=== PATIENT | female | born 1935 | race Caucasian/White ===

== ENCOUNTER → 2017-03-25 | Outpatient (CLI) | payer MEDICARE, OTHER | END | disposition home or self-care (01) | LOC: GMAH 10:35 | PROVIDERS: ATTEND Family Medicine | DX: E03.9 Hypothyroidism, unspecified (principal) ==

== ENCOUNTER → 2017-04-20 | Outpatient (CLI) | payer MEDICARE, OTHER | END | disposition home or self-care (01) | LOC: GMA 18:55 | PROVIDERS: ATTEND Nurse Practitioner Acute Care | DX: N39.0 Urinary tract infection, site not specified (principal) ==

== ENCOUNTER → 2017-04-27 | Outpatient (CLI) | payer MEDICARE, OTHER | END | disposition home or self-care (01) | LOC: GMA 19:28 | PROVIDERS: ATTEND Nurse Practitioner Acute Care | DX: N39.0 Urinary tract infection, site not specified (principal) ==

== ENCOUNTER → 2017-08-31 | Outpatient (CLI) | payer MEDICARE, OTHER | END | disposition home or self-care (01) | LOC: MAMMO 13:04 | PROVIDERS: ATTEND Family Medicine | DX: Z12.31 Encounter for screening mammogram for malignant neoplasm of breast (principal) | CPT/HCPCS: 77063; G0202 ==

== ENCOUNTER → 2018-01-04 | Outpatient (CLI) | payer MEDICARE, OTHER | LOC: GMAH 15:47 | PROVIDERS: ATTEND Family Medicine | DX: N39.0 Urinary tract infection, site not specified (principal) ==

== ENCOUNTER → 2018-01-19 | Outpatient (CLI) | payer MEDICARE, OTHER | LOC: LAB.O 08:52 | PROVIDERS: ATTEND Family Medicine | DX: M06.9 Rheumatoid arthritis, unspecified (principal); M79.7 Fibromyalgia ==

== ENCOUNTER → 2018-04-21 | Outpatient (CLI) | payer MEDICARE, OTHER | LOC: GMAH 11:19 | PROVIDERS: ATTEND Family Medicine | DX: I10 Essential (primary) hypertension (principal); R60.9 Edema, unspecified; R06.02 Shortness of breath ==

== ENCOUNTER → 2018-09-03 | Outpatient (CLI) | payer MEDICARE, OTHER ==
--- NOTE | 2018-09-06 16:31 | MAM ---
EXAM DESCRIPTION: 3D Screening BILATERAL : Digital Mammography. CLINICAL HISTORY: 83 years Female SCREENING . No complaints or personal history of breast cancer. Remote family history of breast cancer. Childbirth. Postmenopausal x44 years. No HRT. Prior cyst aspiration left breast. Lifetime risk of developing breast cancer (Tyrer-Cuzick model)(%): 1.7. COMPARISON: Bilateral screening digital breast tomosynthesis 08/31/2017.. TECHNIQUE: Bilateral CC and MLO projection full-field images, Digital tomosynthesis mammographic technique. Bilateral digital 2-D full-field MLO images. CAD not utilized. FINDINGS: The breast parenchymal density pattern is: Scattered areas of fibroglandular density. No skin thickening or nipple retraction. Bilateral small axillary lymph nodes. Coarse calcifications in the left breast. Bilateral solitary microcalcifications. Fibroglandular tissues predominantly in the anterior third, partially nodular, and symmetric. No new focal, stellate mass or density, focal asymmetry , and no suspicious microcalcifications bilaterally. Stable mammograms compared to prior study. IMPRESSION: Benign exam. BIRAD CATEGORY: 2 BENIGN FINDINGS. RECOMMENDATIONS: FOLLOW UP: Routine digital bilateral screening, one year interval from August 2018. Written communication explaining the IMPRESSION and follow-up, will be mailed to the patient and referring health care provider. According to the [employer], yearly mammograms are recommended starting at age 40 and continuing as long as a woman is in good health. Any breast change noted on a breast self-exam should be reported promptly to the patient's healthcare provider. Breast MRI is recommended for women with an approximately 20-25% or greater lifetime risk of breast cancer, including women with a strong family history of breast or ovarian cancer and women who have been treated for Hodgkin's disease. A negative mammographic report should not delay tissue diagnosis in patients with significant clinical history or physical findings. Extremely dense breast tissue limits the sensitivity of digital mammography. Electronically signed by: Marshal Oconnor MD 09/06/2018 4:30 PM CDT
== END ==
LOC: MAMMO 12:30
PROVIDERS: ATTEND Family Medicine
DX: Z12.31 Encounter for screening mammogram for malignant neoplasm of breast (principal)

== ENCOUNTER → 2018-11-10 | Outpatient (CLI) | payer MEDICARE, OTHER | LOC: GMAH 16:39 | PROVIDERS: ATTEND Family Medicine | DX: M25.50 Pain in unspecified joint (principal) ==

== ENCOUNTER → 2019-06-10 | Outpatient (CLI) | payer MEDICARE, OTHER ==
--- NOTE | 2019-06-10 12:42 | RAD ---
EXAM DESCRIPTION: Pelvis CLINICAL HISTORY: 83 years Female, M25.562/M25.552 COMPARISON: None. TECHNIQUE: AP radiograph of the pelvis was performed. FINDINGS: The pelvic ring appears grossly intact on this single AP radiograph. No gross fracture identified.. Moderate bilateral hip joint osteoarthritic changes are seen. Mild bilateral SI joint degenerative changes. The visualized lumbo-sacral spine demonstrates moderate degenerative changes. IMPRESSION: 1. Single AP radiograph of the pelvis demonstrates grossly intact pelvic ring. 2. Moderate bilateral hip joint and lumbar spine degenerative changes. Electronically signed by: Kavin Parisi MD 06/10/2019 12:40 PM CDT
--- NOTE | 2019-06-10 12:44 | RAD ---
EXAM DESCRIPTION: Knee,Left Complete CLINICAL HISTORY: 83 years Female, M25.562/M25.552 TECHNIQUE: 4 views of the left knee were performed. COMPARISON: None available. FINDINGS: Mild diffuse osteopenia of the visualized bones noted. No acute fracture or dislocation. Mild to moderate tricompartmental osteoarthritic changes. The medial and lateral compartment joint space are well-maintained. Small suprapatellar joint effusion. Slight lateral subluxation of the patella. The overlying soft tissues appear grossly unremarkable. IMPRESSION: 1. No acute fracture or dislocation. 2. Mild to moderate tricompartmental osteoarthritic changes. Electronically signed by: Kavin Parsii MD 06/10/2019 12:42 PM CDT
--- NOTE | 2019-06-10 12:47 | RAD ---
EXAM DESCRIPTION: Knee,Right Complete CLINICAL HISTORY: 83 years Female, M25.562/M25.552 TECHNIQUE: 4 views of the right knee were performed. COMPARISON: July 11, 2014. FINDINGS: Mild diffuse osteopenia of the visualized bones. No acute fracture or dislocation. Moderate to severe tricompartmental osteoarthritic changes. Severe medial compartment joint space narrowing is noted. Moderate suprapatellar joint effusion. The soft tissues appear grossly unremarkable. IMPRESSION: 1. No acute fracture or dislocation. 2. 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 Moderate suprapatellar joint effusion. Note: The osteoarthritic changes are worse in the right knee compared to the left knee. Electronically signed by: Kavin Parisi MD 06/10/2019 12:45 PM CDT
== END ==
LOC: RAD 08:03
PROVIDERS: ATTEND Orthopaedic Surgery
DX: M17.11 Unilateral primary osteoarthritis, right knee (principal); M17.12 Unilateral primary osteoarthritis, left knee; M16.0 Bilateral primary osteoarthritis of hip; M47.896 Other spondylosis, lumbar region

== ENCOUNTER 2019-06-12 07:58 | Emergency (ER) | payer MEDICARE, OTHER ==
--- NOTE | 2019-06-12 08:20 | ED.PDOC ---
History of Present Illness - General Chief Complaint: General Stated Complaint: fever Time Seen by Provider: 06/12/19 08:19 Source: patient Exam Limitations: no limitations - History of Present Illness Initial Comments: Carmencita Lora 83 y/o female came to ER with not feeling well last night then woke up early this Am unable to sleep with fever and body aches.No N/V/D,denies ill contact no dysuria,no chest pains or cough.Has history of Rheumatoid Arthritis on Humira and MTX.Her initial VS at ER BP-139/63;Sa02-94 %p;HR-77T-101.5 F. Timing/Duration: 4-6 hours Severity: moderate Improving Factors: nothing Worsening Factors: nothing Associated Symptoms: other - see hpi Allergies/Adverse Reactions: Allergies NO KNOWN ALLERGY Allergy (Verified 06/12/19 08:24) Home Medications: Ambulatory Orders Diazepam 5 mg PO BEDTIME 09/21/13 Levothyroxine Sodium 175 mcg PO DAILY 09/21/13 Pentoxifylline [Pentoxifylline ER] 400 mg PO BID 07/11/14 Adalimumab [Humira] 10 mg SC BIW 06/12/19 DULoxetine HCL [Cymbalta] 30 mg PO BID 06/12/19 Folic Acid 1 mg PO DAILY 06/12/19 Furosemide [Lasix] 20 mg PO DAILY PRN 06/12/19 Gabapentin 100 mg PO BID 06/12/19 Methotrexate Sodium [Methotrexate] 8 tablet PO WKLY 06/12/19 Metoprolol Succinate [Metoprolol Succinate ER] 25 mg PO DAILY 06/12/19 tiZANidine [Zanaflex] 4 mg PO BEDTIME 06/12/19 Review of Systems - Review of Systems Constitutional: States: fever, weakness EENTM: States: no symptoms reported Respiratory: States: no symptoms reported Cardiology: States: no symptoms reported Gastrointestinal/Abdominal: States: no symptoms reported Genitourinary: States: no symptoms reported Musculoskeletal: States: no symptoms reported Neurological: States: no symptoms reported All other Systems: Reviewed and Negative, No Change from Baseline Past Medical History (General) - Patient Medical History Hx Seizures: No Hx Stroke: No Hx Dementia: No Hx Asthma: No Hx of COPD: No Hx Cardiac Disorders: No Hx Congestive Heart Failure: No Hx Pacemaker: No Hx Hypertension: No Hx Thyroid Disease: No Hx Diabetes: No Hx Gastroesophageal Reflux: No Hx Renal Disease: No Hx Cancer: No Hx of HIV: No Hx Hepatitis C: No Hx MRSA: No Hx Other PMH: Yes - Rhematoid Arthritis Surgical History: other - Hystyerectomy - Vaccination History Hx Tetanus, Diphtheria Vaccination: Yes Hx Influenza Vaccination: Yes Hx Pneumococcal Vaccination: Yes - Social History Hx Tobacco Use: No Hx Chewing Tobacco Use: No Hx Alcohol Use: No Hx Substance Use: No Hx Substance Use Treatment: No Hx Depression: No Hx Physical Abuse: No Hx Emotional Abuse: No Hx Suspected Abuse: No - Activities of Daily Living Patient Lives Alone: Yes Grooming Ability: Independent Eating (Feeding) Ability: Independent Toileting Ability: Independent - Female History Patient : No Family Medical History - Family History Mother Age (years): 87 Living Status: Hx Cardiac Disease: Yes Hx Family;Other: Alzheimers Father Age (years): 87 Living Status: Hx Family;Other: kidney Physical Exam - Physical Exam General Appearance: Alert, Comfortable, No apparent distress Eye Exam: bilateral normal Ears, Nose, Throat: hearing grossly normal, normal ENT inspection, normal pharynx Neck: supple, normal inspection Respiratory: chest non-tender, lungs clear, normal breath sounds, no respiratory distress Cardiovascular/Chest: normal peripheral pulses, no murmur, irregularly irregular - HR-102 Peripheral Pulses: radial,right: 2+, radial,left: 2+ Gastrointestinal/Abdominal: normal bowel sounds, non tender, soft, no organomegaly Back Exam: no CVA tenderness, no vertebral tenderness Extremity: no pedal edema, no calf tenderness Neurologic: alert, oriented x 3 Skin Exam: normal color, warm/dry Lymphatic: no adenopathy Progress - Progress Progress: 06/12/19 09:05 Vital Signs - 24 hr 06/12/19 08:20 Temperature 101.5 F H Pulse Rate [ 110 H MONITOR] Respiratory 18 Rate Blood Pressure 139/63 [RA] O2 Sat by Pulse 92 L Oximetry - Results/Orders Results/Orders: 06/12/19 08:00 Urine Culture Stat 06/12/19 08:20 IV Care:Saline Lock per Protoc QSHIFT 06/12/19 08:45 EKG STAT 06/12/19 08:46 BLOOD CULTURE Stat 06/12/19 10:00 EKG STAT 06/12/19 10:23 Sodium Chloride 0.9% 1000ML [Ns 1000 ml] 1,000 ml IVS .QD Laboratory Results - last 24 hr 06/12/19 06/12/19 06/12/19 08:00 08:00 08:28 WBC 12.2 H RBC 4.42 Hgb 14.1 Hct 40.7 MCV 92.0 MCH 31.8 H MCHC 34.6 RDW 15.1 H Plt Count 214 MPV 7.1 L Absolute Neuts (auto) 11.00 H Absolute Lymphs (auto) 0.40 L Absolute Monos (auto) 0.80 Absolute Eos (auto) 0.00 Absolute Basos (auto) 0.00 Neutrophils % 90.1 H Lymphocytes % 3.4 L Monocytes % 6.3 Eosinophils % 0.1 L Basophils % 0.1 PT 9.9 INR 0.99 PTT (SP) 24.0 Sodium 140 Potassium 3.3 L Chloride 103 Carbon Dioxide 23 Anion Gap 17.3 BUN 33 H Creatinine 0.71 BUN/Creatinine Ratio 46.5 H Random Glucose 81 Serum Osmolality Not Reportable Lactic Acid 2.5 H* Calcium 9.5 Magnesium 2.0 Total Bilirubin 0.5 Direct Bilirubin 0.1 Indirect Bilirubin 0.4 AST 32 ALT 20 Alkaline Phosphatase 110 Creatine Kinase 76 CK-MB (CK-2) 4.4 CK-MB (CK-2) % 5.79 H Troponin I 0.06 H Serum Total Protein 7.1 Albumin 4.1 Urine Color Yellow Urine Appearance Clear Urine pH 6.0 Ur Specific [place] 1.015 Urine Protein 30 Urine Glucose (UA) Negative Urine Ketones Negative Urine Blood Large H Urine Nitrite Positive H Urine Bilirubin Negative Urine Urobilinogen 0.2 Ur Leukocyte Esterase Small H Urine RBC 3-5 H Urine WBC 30-40 H Ur Epithelial Cells 3-5 Urine Bacteria 2+ H 06/12/19 06/12/19 10:28 10:28 WBC RBC Hgb Hct MCV MCH MCHC RDW Plt Count MPV Absolute Neuts (auto) Absolute Lymphs (auto) Absolute Monos (auto) Absolute Eos (auto) Absolute Basos (auto) Neutrophils % Lymphocytes % Monocytes % Eosinophils % Basophils % PT INR PTT (SP) Sodium Potassium Chloride Carbon Dioxide Anion Gap BUN Creatinine BUN/Creatinine Ratio Random Glucose Serum Osmolality Lactic Acid 2.9 H* Calcium Magnesium Total Bilirubin Direct Bilirubin Indirect Bilirubin AST ALT Alkaline Phosphatase Creatine Kinase CK-MB (CK-2) CK-MB (CK-2) % Troponin I 0.08 H* Serum Total Protein Albumin Urine Color Urine Appearance Urine pH Ur Specific [place] Urine Protein Urine Glucose (UA) Urine Ketones Urine Blood Urine Nitrite Urine Bilirubin Urine Urobilinogen Ur Leukocyte Esterase Urine RBC Urine WBC Ur Epithelial Cells Urine Bacteria Discuss test result with patient that she needs to stay in hospital agreed with plan - EKG/XRAY/CT EKG: Sinus, Tachy Comments: HR-97;PVC's ;sinus arrhythmia;PAC XRAY: chest - no acute abnormalities - Additional EKG/XRAY/Consults EKG #2: Atrial, Fibrillation Comments: HR-154 Departure - Departure Clinical Impression: New onset atrial fibrillation, Elevated troponin, Lactic acid blood increased Fever Qualifiers: Fever type: due to other condition Qualified Code(s): R50.81 - Fever presenting with conditions classified elsewhere Urinary tract infection Qualifiers: Urinary tract infection type: site unspecified Hematuria presence: with hematuria Qualified Code(s): N39.0 - Urinary tract infection, site not specified Time of Disposition: 11:38 Disposition: Transfer to Hospital Condition: Fair Departure Forms: Patient Portal Self Enrollment Referrals: Sanford Stokes MD [Primary Care Provider] - 1-2 Weeks Home Medications: Ambulatory Orders Diazepam 5 mg PO BEDTIME 09/21/13 Levothyroxine Sodium 175 mcg PO DAILY 09/21/13 Pentoxifylline [Pentoxifylline ER] 400 mg PO BID 07/11/14 Adalimumab [Humira] 10 mg SC BIW 06/12/19 DULoxetine HCL [Cymbalta] 30 mg PO BID 06/12/19 Folic Acid 1 mg PO DAILY 06/12/19 Furosemide [Lasix] 20 mg PO DAILY PRN 06/12/19 Gabapentin 100 mg PO BID 06/12/19 Methotrexate Sodium [Methotrexate] 8 tablet PO WKLY 06/12/19 Metoprolol Succinate [Metoprolol Succinate ER] 25 mg PO DAILY 06/12/19 tiZANidine [Zanaflex] 4 mg PO BEDTIME 06/12/19 Transfer to Outside Facility - Transfer Information Accepting Provider:: Dr. Parker Accepting Facility: [facility] Reason for Transfer: required specialist not available - almond paste mixer
[2019-06-12] MEDS: SODIUM CHLORIDE 0.9% 500ML 500 ML IVS ONE ×2 (08:48→09:28)
[2019-06-12] MEDS ORDERED: ACETAMINOPHEN 500 MG TAB PO ONE (08:56)
[2019-06-12] MEDS ORDERED: ASPIRIN (CHEWABLE) 81 MG TAB PO ONE (09:11)
--- NOTE | 2019-06-12 09:35 | RAD ---
EXAM DESCRIPTION: Chest,1 View CLINICAL HISTORY: 83 years Female fever COMPARISON: None TECHNIQUE: Portable AP view of the chest is obtained. FINDINGS IN THE CHEST: Heart: Allowing for magnification factors related to AP portable technique and body habitus, the heart is upper limits of normal in size and configuration. Vasculature: [] Micrograms aorta There is no evidence of aortic aneurysm or acute findings. The pulmonary vascularity is normal. Mediastinum: Unremarkable otherwise. No evidence of mass or adenopathy. Lungs: There is no focal consolidation in the lungs. Pleura: There are no pleural effusions. There are no pneumothoraces. Osseous structures: No evidence of acute fracture or other significant osseous abnormalities. There are multiple costochondral calcifications. Tubes and catheters: None Chest wall: Unremarkable. Visualized Abdomen: Unremarkable. IMPRESSION: No acute findings in the chest. Remainder of findings as described above. Electronically signed by: Deanna Miles MD 06/12/2019 9:34 AM CDT
[2019-06-12] MEDS ORDERED: MEROPENEM 1 GM in SODIUM CHL 0.9% 50ML MIN-BAG+ 50 ML IVPB ONE (09:38)
[2019-06-12] MEDS ORDERED: MEROPENEM 1 GM VIAL IVPB ONE (09:41)
[2019-06-12] MEDS ORDERED: SODIUM CHL 0.9% 50ML MIN-BAG+ 50 ML IVPB ONE (09:41)
[2019-06-12] MEDS ORDERED: SODIUM CHLORIDE 0.9% 1000ML 1,000 ML IVS PRN (10:23)
[2019-06-12 11:45] VITALS: BP 98/67; O2SAT 96
[2019-06-12 13:05] VITALS: TEMP 99.1
== END 2019-06-12 12:20 | disposition short-term general hospital (02) ==
LOC: ER 07:58
DX: N39.0 Urinary tract infection, site not specified (principal); I48.91 Unspecified atrial fibrillation; R79.89 Other specified abnormal findings of blood chemistry; R74.0 Nonspecific elevation of levels of transaminase and lactic acid dehydrogenase [LDH]; I49.3 Ventricular premature depolarization; I49.1 Atrial premature depolarization; R00.0 Tachycardia, unspecified; M06.9 Rheumatoid arthritis, unspecified; Z79.899 Other long term (current) drug therapy
CPT/HCPCS: 36415; 71045; 80048; 80076; 81001; 82550; 82553; 83605; 84484; 85025; 85610; 85730; 87040; 87077; 87086; 87186; 93005; J2185; J7030; J7040; J7050

== ENCOUNTER → 2019-08-02 | Outpatient (CLI) | payer MEDICARE, OTHER | LOC: GMA MATASK 11:42 | PROVIDERS: ATTEND Family Medicine | DX: I10 Essential (primary) hypertension (principal) ==

== ENCOUNTER → 2019-09-29 | Outpatient (CLI) | payer MEDICARE, OTHER | LOC: GMA MATASK 14:41 | PROVIDERS: ATTEND Family Medicine | DX: E03.9 Hypothyroidism, unspecified (principal) ==

== ENCOUNTER → 2020-05-29 | Outpatient (CLI) | payer MEDICARE, OTHER | LOC: GMA MATASK 14:48 | PROVIDERS: ATTEND Family Medicine | DX: E03.9 Hypothyroidism, unspecified (principal); E78.2 Mixed hyperlipidemia; I10 Essential (primary) hypertension ==

== ENCOUNTER → 2020-06-20 | Outpatient (CLI) | payer MEDICARE, OTHER ==
--- NOTE | 2020-06-21 08:51 | US ---
EXAM DESCRIPTION: Venous,Upper Extremity RT: ULTRASOUND. CLINICAL HISTORY: generalized edema COMPARISON: None Available. TECHNIQUE: Two -dimensional and doppler sonographic evaluation of the deep venous system of the right upper extremity. FINDINGS: Doppler evaluation shows normal color flow and normal phasicity and augmentation of the right subclavian, jugular, axillary, basilic, cephalic, brachial, radial vein and ulnar vein. The right upper extremity deep veins showed normal occlusion with transducer pressure. Two-dimensional survey showed no echogenic thrombus within these veins. IMPRESSION: Duplex ultrasound evaluation of the right upper extremity deep venous system showing no evidence of thrombosis . Electronically signed by: Marshal Oconnor MD 06/21/2020 8:49 AM CDT
--- NOTE | 2020-06-21 08:53 | US ---
EXAM DESCRIPTION: Soft Tissue,Extremity: ULTRASOUND. CLINICAL HISTORY: 84 years Female generalized edema COMPARISON: None Available. TECHNIQUE: Transcutaneous scanning: [place]-scale and Doppler modes. FINDINGS: Right axilla. Mostly fatty tissues. Hypoechoic circumscribed lymph node with eccentric hilum measuring 6.0 x 5.0 x 2.9 mm. Not vascular. No dominant solid mass, no distinct cyst, no fluid collection, and no large calcifications. Normal musculotendinous structures and vascular structures are also seen. IMPRESSION: Small lymph node with normal morphology is visualized in the right axilla. No dominant solid mass or abnormal reactive lymph node seen. Electronically signed by: Marshal Oconnor MD 06/21/2020 8:52 AM CDT
== END ==
LOC: US 12:50
PROVIDERS: ATTEND Family Medicine
DX: R60.1 Generalized edema (principal); M25.551 Pain in right hip

== ENCOUNTER → 2020-08-22 | Outpatient (CLI) | payer MEDICARE, OTHER | LOC: LAB.O 14:24 | PROVIDERS: ATTEND Family Medicine | DX: D64.9 Anemia, unspecified (principal) ==

== ENCOUNTER 2020-09-23 13:18 | Emergency (ER) | payer MEDICARE, OTHER ==
[2020-09-23] MEDS ORDERED: HYDROcodone 5MG/APAP 325MG 1 EA TAB PO ONE (13:40)
--- NOTE | 2020-09-23 13:43 | ED.PDOC ---
History of Present Illness - General Chief Complaint: Lower Extremity Injury Stated Complaint: bilateral hip and knee pain Time Seen by Provider: 09/23/20 13:33 Source: patient, RN notes reviewed, Vital Signs reviewed Exam Limitations: no limitations - History of Present Illness Initial Comments: Patient reports history of rheumatoid arthritis and her doctor took her off her usual pain medications about 3 weeks ago. States she fell at home 10 days ago and hurt her right hip. She was seen by her PCP with x-rays of the right hip that were negative. States 3 days ago she was walking with her walker in the house and fell forward onto bilateral flexed knees. She denies hitting her head, loss of consciousness, neck pain or back pain. States she has had right h ip and bilateral knee pain for the past few days whenever she is weightbearing. She has no pain at night or whenever she is lying down. Her doctor put her on an anti-inflammatory pain medication last week, but it is not controlling her pain. Allergies/Adverse Reactions: Allergies NO KNOWN ALLERGY Allergy (Verified 01/11/20 21:01) Home Medications: Ambulatory Orders Diazepam 5 mg PO BEDTIME 09/21/13 Levothyroxine Sodium 175 mcg PO DAILY 09/21/13 Pentoxifylline [Pentoxifylline ER] 400 mg PO BID 07/11/14 Adalimumab [Humira] 10 mg SC BIW 06/12/19 DULoxetine HCL [Cymbalta] 30 mg PO BID 06/12/19 Folic Acid 1 mg PO DAILY 06/12/19 Furosemide [Lasix] 20 mg PO DAILY PRN 06/12/19 Gabapentin 100 mg PO BID 06/12/19 Methotrexate Sodium [Methotrexate] 8 tablet PO WKLY 06/12/19 Metoprolol Succinate [Metoprolol Succinate ER] 25 mg PO DAILY 06/12/19 tiZANidine [Zanaflex] 4 mg PO BEDTIME 06/12/19 Review of Systems - Review of Systems Constitutional: Denies: chills, fever Respiratory: Denies: cough, short of breath Cardiology: Denies: chest pain, edema, palpitations, syncope Gastrointestinal/Abdominal: Denies: abdominal pain, diarrhea, nausea Musculoskeletal: States: see HPI Skin: States: no symptoms reported Neurological: Denies: headache, numbness, paresthesia All other Systems: Reviewed and Negative Past Medical History (General) - Patient Medical History Hx Seizures: No Hx Stroke: No Hx Dementia: No Hx Asthma: No Hx of COPD: No Hx Cardiac Disorders: No Hx Congestive Heart Failure: No Hx Pacemaker: No Hx Hypertension: No Hx Thyroid Disease: No Hx Diabetes: No Hx Gastroesophageal Reflux: No Hx Renal Disease: No Hx Cancer: No Hx of HIV: No Hx Hepatitis C: No Hx MRSA: No - Vaccination History Hx Tetanus, Diphtheria Vaccination: Yes Hx Influenza Vaccination: Yes Hx Pneumococcal Vaccination: Yes - Social History Hx Tobacco Use: No Hx Chewing Tobacco Use: No Hx Alcohol Use: No Hx Substance Use: No Hx Substance Use Treatment: No Hx Depression: No Hx Physical Abuse: No Hx Emotional Abuse: No Hx Suspected Abuse: No - Female History Patient : No Family Medical History - Family History Mother Age (years): 87 Living Status: Hx Cardiac Disease: Yes Hx Family;Other: Alzheimers Father Age (years): 87 Living Status: Hx Family;Other: kidney Physical Exam - Physical Exam General Appearance: Alert, Comfortable, No apparent distress Eyes, Ears, Nose, Throat: PERRL/EOMI Neck: other - No C, T, L spine vertebral tenderness Cardiovascular/Respiratory: regular rate, rhythm, normal peripheral pulses, normal breath sounds, no respiratory distress Gastrointestinal/Abdominal: non-tender Back: no CVA tenderness, no vertebral tenderness Thigh/Hip: other - TTP right lateral hip. Leg: other - TTP bilateral anterior knees. No ecchymosis, effusion or skin changes Mental Status: alert, oriented x 3 Skin: warm/dry Progress - Progress Progress: 09/23/20 14:52 Discussed with patient and daughter results. No sign of acute fracture or dislocation on imaging. Patient uses a walker at home. Daughter states they are trying to set up home physical therapy through her primary care doctor which she has had in the past with good results. She has been taking tramadol for pain at home that is not controlling her pain. They request a few pills of a stronger pain medication and patient is going to go stay with her other daughter for the next few days. I have recommended she follow-up with her PCP in 1 to 2 days for continued evaluation. Strict return precautions given. - Results/Orders Results/Orders: RIGHT HIP Technique: 2 views of the right hip. Clinical history: fall. Findings: Normal hip joint. Normal sacroiliac joint. No evidence for acute fracture. No dislocation. No destructive lesion. Impression: 1. No acute skeletal findings. LEFT KNEE EXAM: XR Left Knee, ^ Views CLINICAL HISTORY: fall TECHNIQUE: Frontal and lateral views of the left knee. COMPARISON: 01/11/2020 FINDINGS: Bones/joints: Small joint effusion noted. There is stable patellofemoral narrowing and spurring. No acute fracture. No dislocation. Soft tissues: No abnormality noted. Vasculature: Atherosclerotic calcification noted posterior to the femur. IMPRESSION: Mild patellofemoral degenerative changes stable. There is a small joint effusion. RIGHT KNEE EXAM: XR Right Knee, 2 Views CLINICAL HISTORY: fall TECHNIQUE: Frontal and lateral views of the right knee. COMPARISON: 06/10/2019 FINDINGS: Bones/joints: Stable small joint effusion. Stable mild patellofemoral spurring and narrowing. No acute fracture. No dislocation. Soft tissues: No abnormality noted. IMPRESSION: Stable mild patellofemoral degenerative change and small joint effusion. No acute disease. Departure - Departure Clinical Impression: Strain of right hip Qualifiers: Encounter type: initial encounter Qualified Code(s): S76.011A - Strain of muscle, fascia and tendon of right hip, initial encounter Bilateral knee pain Qualifiers: Chronicity: acute Qualified Code(s): M25.561 - Pain in right knee; M25.562 - Pain in left knee Rheumatoid arthritis Qualifiers: Rheumatoid arthritis location: knee Rheumatoid factor presence: unspecified presence Laterality: bilateral Qualified Code(s): M06.9 - Rheumatoid arthritis, unspecified Time of Disposition: 14:55 Disposition: Discharge to Home or Self Care Condition: Fair Departure Forms: ED Discharge - Pt. Copy, Patient Portal Self Enrollment Instructions: DI for Leg Pain, Knee Pain (DC) Diet: resume usual diet Activity: increase activity as tolerated Referrals: Sanford Stokes MD [Primary Care Provider] - 1-2 Days Dawit Stephens MD [Active Staff] - 1-5 Days Home Medications: Ambulatory Orders Diazepam 5 mg PO BEDTIME 09/21/13 Levothyroxine Sodium 175 mcg PO DAILY 09/21/13 Pentoxifylline [Pentoxifylline ER] 400 mg PO BID 07/11/14 Adalimumab [Humira] 10 mg SC BIW 06/12/19 DULoxetine HCL [Cymbalta] 30 mg PO BID 06/12/19 Folic Acid 1 mg PO DAILY 06/12/19 Furosemide [Lasix] 20 mg PO DAILY PRN 06/12/19 Gabapentin 100 mg PO BID 06/12/19 Methotrexate Sodium [Methotrexate] 8 tablet PO WKLY 06/12/19 Metoprolol Succinate [Metoprolol Succinate ER] 25 mg PO DAILY 06/12/19 tiZANidine [Zanaflex] 4 mg PO BEDTIME 06/12/19 Additional Instructions: RX written for [place] 5/325 mg #12 CTRL# [id number]
--- NOTE | 2020-09-23 14:37 | RAD ---
: 1935. Technique: 2 views of the right hip. Clinical history: fall. Findings: Normal hip joint. Normal sacroiliac joint. No evidence for acute fracture. No dislocation. No destructive lesion. Impression: 1. No acute skeletal findings. Electronically signed by: Micky White MD 09/23/2020 2:35 PM FLOOR COVERING INSTALLER
--- NOTE | 2020-09-23 14:38 | RAD ---
EXAM: XR Left Knee, ^ Views CLINICAL HISTORY: fall TECHNIQUE: Frontal and lateral views of the left knee. COMPARISON: 01/11/2020 FINDINGS: Bones/joints: Small joint effusion noted. There is stable patellofemoral narrowing and spurring. No acute fracture. No dislocation. Soft tissues: No abnormality noted. Vasculature: Atherosclerotic calcification noted posterior to the femur. IMPRESSION: Mild patellofemoral degenerative changes stable. There is a small joint effusion. Electronically signed by: Ayde Cummins MD 09/23/2020 2:37 PM CRM CONSULTANT
--- NOTE | 2020-09-23 14:40 | RAD ---
EXAM: XR Right Knee, 2 Views CLINICAL HISTORY: fall TECHNIQUE: Frontal and lateral views of the right knee. COMPARISON: 06/10/2019 FINDINGS: Bones/joints: Stable small joint effusion. Stable mild patellofemoral spurring and narrowing. No acute fracture. No dislocation. Soft tissues: No abnormality noted. IMPRESSION: Stable mild patellofemoral degenerative change and small joint effusion. No acute disease. Electronically signed by: Ayde Cummins MD 09/23/2020 2:38 PM SUPERVISOR ORCHARD
[2020-09-23 15:24] VITALS: BP 114/61; TEMP 97.8; O2SAT 96
== END 2020-09-23 15:24 | disposition home or self-care (01) ==
LOC: ER 13:18
DX: S76.011A Strain of muscle, fascia and tendon of right hip, initial encounter (principal); M25.561 Pain in right knee; M25.562 Pain in left knee; M06.9 Rheumatoid arthritis, unspecified; Z79.899 Other long term (current) drug therapy; W18.39XA Other fall on same level, initial encounter; Y93.01 Activity, walking, marching and hiking; Y92.009 Unspecified place in unspecified non-institutional (private) residence as the place of occurrence of the external cause

== ENCOUNTER → 2020-10-18 | Outpatient (CLI) | payer MEDICARE, OTHER ==
--- NOTE | 2020-10-19 10:20 | CT ---
EXAM DESCRIPTION: Lower Extremity CLINICAL HISTORY: RT HIP PAIN COMPARISON: X-ray September 23, 2020 TECHNIQUE: Noncontrast transaxial CT images of the hips are obtained with coronal and sagittal reconstructed images . This exam was performed according to our departmental dose-optimization program, which includes automated exposure control, adjustment of the mA and/or kV according to patient size and/or use of iterative reconstruction technique . FINDINGS: No acute fracture, focal bone destruction, or joint dislocation. Mild joint space narrowing is seen in both hips with mild circumferential osteophyte of the femoral heads. Moderate joint space narrowing and bony hypertrophy with chronic changes of the pubic symphysis. No joint effusion. Small fat-containing left inguinal hernia. Multiple enlarged lymph nodes in the right groin are seen measuring maximum 11 mm short axis. Mild less than 1 cm external iliac chain lymph nodes are seen bilaterally. Urinary bladder is distended and unremarkable. The uterus is not identified and presumed surgically absent. Moderate scattered diverticuli of the colon without associated inflammatory changes or fluid collections. IMPRESSION: No CT evidence of hip fracture. 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 Colon diverticulosis without CT evidence of diverticulitis. Enlarged groin and external iliac chain lymph nodes are seen right greater than left. As could be reactive. Continued follow-up is recommended. Other findings as described above. Electronically signed by: Sebas Prasad MD 10/19/2020 10:18 AM [facility] [[email or web address]]
== END ==
LOC: MRI 11:04
PROVIDERS: ATTEND Family Medicine
DX: M16.0 Bilateral primary osteoarthritis of hip (principal); K57.30 Diverticulosis of large intestine without perforation or abscess without bleeding; R59.0 Localized enlarged lymph nodes; K40.90 Unilateral inguinal hernia, without obstruction or gangrene, not specified as recurrent